=== PATIENT | female | born 2000 | race Caucasian/White ===

== ENCOUNTER 2019-01-05 21:27 | Emergency (ER) | payer OTHER, SELFPAY ==
[2019-01-05 21:28] VITALS: BP 130/80; PULSE 74; RESP 18; TEMP 36.8; O2SAT 98; BMI 22.8
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
[2019-01-05 22:50] VITALS: BP 122/68; PULSE 68; RESP 17; O2SAT 99
== END 2019-01-05 22:50 | disposition home or self-care (01) ==
PROVIDERS: Emergency Provider Emergency Medicine
DX: S16.1XXA Strain of muscle, fascia and tendon at neck level, initial encounter (principal); S20.219A Contusion of unspecified front wall of thorax, initial encounter; V43.51XA Car driver injured in collision with sport utility vehicle in traffic accident, initial encounter; Y93.9 Activity, unspecified; Y92.9 Unspecified place or not applicable; F32.9 Major depressive disorder, single episode, unspecified; Z79.899 Other long term (current) drug therapy
CPT/HCPCS: 71046; 99282